=== PATIENT | female | born 1995 | race Caucasian/White ===

== ENCOUNTER 2024-01-17 18:06 | Emergency (ER) | payer MEDICAID, SELFPAY ==
[2024-01-17 18:07] VITALS: BP 106/70; PULSE 96; RESP 18; TEMP 36.6; O2SAT 99; BMI 23.8
--- NOTE | 2024-01-17 18:13 | EKG12_ITS ---
Test Reason : CP Blood Pressure : / mmHG Vent. Rate : 086 BPM Atrial Rate : 086 BPM P-R Int : 168 ms QRS Dur : 074 ms QT Int : 356 ms P-R-T Axes : 078 019 051 degrees QTc Int : 426 ms Normal sinus rhythm Low voltage QRS Borderline ECG Confirmed by INDRA BRITO, ACACIA ([id number]), editorial manager JOSE BERGMAN ([id number]) on 01/19/2024 10:25:20 AM Referred By: TERRI Confirmed By:ACACIA BURRELL MD
--- NOTE | 2024-01-17 18:54 | EX.ED.DYSGE1 ---
HPI History of Present Illness Chief Complaint: Chest Pain Detail of Chief Complaint: Respiratory symptoms with productive cough x 3 weeks Informant: patient Onset/Context/Timing Onset: Weeks Context: Sudden Onset Timing: Continuous and Waxes and wanes Quality: Dyspnea, productive cough, dysphonia and pleuritic pain Location: Respiratory Current Severity: Mild Maximum Severity: Moderate Worsened by: Going up and down steps Relieved by: Nothing Associated Symptoms Associated Symptoms: Subjective fever without chills Narrative Narrative: Patient a 28-year-old non-smoker who has been ill for approximate 3 weeks. She states on Thursday she was seen at urgent care. She was placed on antibiotics because she had something going on in her chest . She states initially she had rhinorrhea congestion thought she maybe had a sinus infection. Since symptoms not improving her voice was worse she went to the urgent care. Urgent care practitioner prescribed Augmentin. No imaging or testing was done. Patient denies headache, she denies ringing or ears or decreased hearing. She presently endorses rhinorrhea and congestion. She reports mild sore throat. She denies difficulty swallowing. Her cough is productive of colored sputum. She is a non-smoker. She has no history of PE or DVT. She has no risk factors for PE or DVT. She does report upper abdominal pain after coughing. She denies nausea, vomiting or diarrhea. He denies leg pain, swelling or discoloration. Prior similar symptoms: No Recent Illness/Hospitalization: Yes PFSH PFSH Medical History no medical history no medical history Home Medications ?Medication ?Instructions ?Recorded ?Last Taken ?Type azithromycin 250 mg tablet 250 mg PO DAILY #4 TABLETS 01/17/24 Unknown Rx prednisone 20 mg tablet 60 mg (3 x 20 mg) PO DAILY #12 01/17/24 Unknown Rx TABLETS Allergy/AdvReac Type Severity Reaction Status Date / Time cyclobenzaprine (From Allergy Chest Verified 01/17/24 18:07 Flexeril) tightness Surgical History no surgical history no surgical history Social History Smoking Status: Never smoker ROS ROS ED Constitutional Constitutional ED: Reports fever(s) and subjective; Denies chills or sweats Eyes Eyes: Denies blurry vision or change in vision ENT ENT ED: Reports rhinorrhea and sore throat; Denies ear pain Cardiovascular Cardiovascular: Reports chest pain; Denies orthopnea, palpitations, paroxysmal nocturnal dyspnea or racing heartbeat Respiratory/Chest Respiratory/Chest: Reports cough, dyspnea, dyspnea on exertion and sputum; Denies orthopnea or paroxysmal nocturnal dyspnea Gastrointestinal Gastrointestinal: Reports abdominal pain; Denies constipation, diarrhea, melena, nausea or vomiting Genitourinary Genitourinary ED: Denies dysuria, hematuria or urinary frequency Musculoskeletal Musculoskeletal: Denies arthralgias, back pain, myalgias or neck pain Integumentary Denies rash Neurologic Neurologic: Denies headache(s), paresthesias or weakness Hematologic/Lymphatic Hematologic/Lymphatic: Reports systems reviewed and no addt'l complaints, except as documented EXAM Physical Exam Const Vital Signs: 01/17/24 18:07 01/17/24 18:07 01/17/24 20:06 Temperature 97.8 F Temperature Source Temporal Pulse Rate 96 69 Respiratory Rate 18 16 Blood Pressure 106/70 106/70 98/62 Blood Pressure Mean 82 82 74 Pulse Ox 99 96 Oxygen Delivery Method Room Air Room Air Positive well nourished and well developed Constitutional Narrative: Patient's voice is markedly hoarse. She appears no distress. Vital signs are normal. General Appearance ED: well developed and NAD; Negative for cyanotic, diaphoretic or pallor HEENT Reports TM's clear and moist mucous membranes HEENT Narrative: Posterior pharynx out erythema or exudate. Uvula midline. No angioedema. Nares patent with slight drainage. She complains of mild discomfort with palpation over the frontal and maxillary sinuses. Ears normal. Tympanic Membrane ED: Yes TM's clear Eyes PERRL and EOMs intact bilaterally General Eye ED: Negative for pale conjunctiva or scleral icterus Neck no lymphadenopathy, supple and no JVD Neck Narrative: Trachea is midline. There is no inspiratory expiratory stridor. Chest Wall inspection of chest normal and palpation of chest normal Resp normal respiratory effort and clear to auscultation bilaterally Cardio regular rate, regular rhythm, S1 normal heart sound, S2 normal heart sound and no murmurs GI normal to inspection, nondistended, normoactive bowel sounds, non-distended and no masses; Negative for non-tender or hepatosplenomegaly Auscultation: hypoactive bowel sounds Palpation: tender epigastric Back/Spine no CVA tenderness Extremity Extremity Narrative: There is no asymmetry, swelling, discoloration, leg vein distention, palpable cords or tenderness along the distribution of the deep venous system. Neuro oriented x3 and CN's II-XII intact bilaterally Sensorium / Orientation: alert Skin no rashes or lesions noted and no wounds General Skin Exam: Negative for jaundice or pallor MDM MDM MDM Narrative Medical decision making narrative: With symptoms for 3 weeks Lab Data Attestation: I reviewed the patient's lab results. Lab results narrative: CBC reveals mild anemia with normal indices. Anemia has improved. Patient metabolic panel is unremarkable. Rapid antigen for COVID, influenza and RSV was negative. Therefore we will add antibiotic, azithromycin and discharged with prescription for prednisone and we will have respiratory teach patient how to use an inhaler. Labs: Laboratory Results - last 24 hr 01/17/24 19:15 WBC 5.6 RBC 3.88 L Hgb 11.5 L Hct 34.9 L MCV 89.9 MCH 29.6 MCHC 33.0 RDW Std Deviation 41.1 RDW Coeff of Mike 12.5 Plt Count 238 MPV 10.4 Immature Gran % (Auto) 0.200 Neut % (Auto) 51.0 Lymph % (Auto) 36.7 [place] % (Auto) 9.8 Eos % (Auto) 1.6 Baso % (Auto) 0.7 Absolute Neuts (auto) 2.9 Absolute Lymphs (auto) 2.06 Nucleated RBC % 0 Sodium 141 Potassium 4.1 Chloride 109 H Carbon Dioxide 28.0 Anion Gap 4 L BUN 9 Creatinine 0.87 Estim Creat Clear Calc 88.51 Est GFR (MDRD) Af Amer 98 Est GFR (MDRD) Non-Af 81 BUN/Creatinine Ratio 10.3 Glucose 83 Calcium 9.4 Radiography Chest X-Ray - ED: 2 View and Read by ED Physician (Chest x-ray is normal per my independent evaluation interpretation. Cardiac silhouette size normal. Lung parenchyma normal. Hilum is normal. Osseous structures unremarkable.) Diagnostic Testing: Clinical Impression(s) from Imaging Studies Chest X-Ray 01/17/24 19:20 IMPRESSION: No acute pulmonary finding. Electronically Signed: Brant Ramey MD at 19:50 EDT Reading Location ID and State: [facility] / [place] Tel , Service support , Discharge Plan Triage Chief Complaint: Chest Pain ED Provider: Pratik Becker Dx/Rx/DC Orders Clinical Impression: Purulent bronchitis, Bronchospasm, Acute bacterial tracheitis Instructions: ED Upper Resp Infec Abx Tx Prescriptions: New azithromycin 250 mg tablet 250 mg PO DAILY Qty: 4 0RF prednisone 20 mg tablet 60 mg PO DAILY Qty: 12 0RF Primary Care Provider: Renard Brooks Referrals: Renard Brooks MD [Primary Care Provider] - 1 Week if not improving Print Language: Divehi Disposition Disposition: Home, Self Care
--- NOTE | 2024-01-17 19:20 | RAD_ITS ---
INDICATION: Cough, dyspnea, pleurisy EXAMINATION/TECHNIQUE: X-RAY - XR Chest 2 Views COMPARISON: No relevant prior comparison study available FINDINGS: LINES/DEVICES: None. LUNGS: The lungs are well expanded. No consolidation, edema or effusion. No pneumothorax. MEDIASTINUM AND CARDIOVASCULAR STRUCTURES: Cardiac silhouette not enlarged. Central airways and mediastinal contour are unremarkable. BONES AND SOFT TISSUES: No acute abnormality. RAD/Chest PA and Lateral IMPRESSION: No acute pulmonary finding. Electronically Signed: Brant Ramey MD at 19:50 EDT ,
[2024-01-17 19:26] LABS: Absolute Lymphocyte Count 2.06 X10^3/uL (0.83-4.51); Absolute Neutrophil Count 2.9 X10^3/uL (2.0-7.7); Basophil# 0.04 X10^3/uL; Basophil% 0.7 % (0-1); Eosinophil# 0.09 X10^3/uL; Eosinophils% 1.6 % (0-5); Hematocrit 34.9 % (37-47); Hemoglobin 11.5 g/dL (12.0-15.0); Lymphocyte # 2.06 X10^3/ul (0.83-4.51); Lymphocyte % 36.7 % (19-41); Mean Corpuscular Hgb 29.6 pg (27.0-32.0); Mean Corpuscular Volume 89.9 fL (81-99); Mean Platelet Vol. 10.4 fl (6.2-12.0); Monocyte# 0.55 X10^3/uL; Monocyte% 9.8 % (0-10); NRBC Flagged by Analyzer 0 % (0-5); Neutrophil # 2.87 X10^3/uL (2.7-7.7); Platelet Count 238 K/mm3 (150-450); RBC Distribution Width CV 12.5 % (11.6-14.6); RBC Distribution Width SD 41.1 fl (35.1-43.9); Red Blood Count 3.88 M/mm3 (4.2-5.4); White Blood Count 5.6 K/mm3 (4.4-11.0)
[2024-01-17 19:39] LABS: Anion Gap 4 (5-15); BUN 9 mg/dL (7-18); BUN/Creat Ratio 10.3 RATIO (10-20); Calcium,Total 9.4 mg/dL (8.5-10.1); Chloride 109 mmol/L (98-107); Creatinine, Serum 0.87 mg/dL (0.55-1.02); EST Glomerular Filtration Rate 81 mL/min (>60); Est Glom Filt Rate - Afr Amer 98 mL/min (>60); Estimated Creatinine Clearance 88.51 ml/min; Glucose 83 mg/dL (74-106); Potassium 4.1 mmol/L (3.5-5.1); Sodium Level 141 mmol/L (136-145)
[2024-01-17 20:06] VITALS: BP 98/62; PULSE 69; RESP 16; O2SAT 96
[2024-01-17] MEDS: predniSONE 20 MG Tablet 60 MG PO (21:00)
[2024-01-17] MEDS: Albuterol Sulfate 8 gm Inhaler (60 puffs) 2 PUFF INHALATION (21:00)
[2024-01-17] MEDS: Azithromycin 250 MG Tablet 500 MG PO (21:00)
[2024-01-17 21:04] VITALS: BP 101/66; PULSE 65; RESP 16; TEMP 36.7; O2SAT 96
== END 2024-01-17 21:08 | disposition home or self-care (01) ==
PROVIDERS: Emergency Provider Emergency Medicine; PCP Family Medicine; Visit Provider Emergency Medicine
DX: J41.1 Mucopurulent chronic bronchitis (principal); J98.01 Acute bronchospasm; J04.10 Acute tracheitis without obstruction; B96.89 Other specified bacterial agents as the cause of diseases classified elsewhere; Z11.52 Encounter for screening for COVID-19; R09.3 Abnormal sputum; R10.10 Upper abdominal pain, unspecified
CPT/HCPCS: 71046; 80048; 85025; 87631; 93005; 99282; A4216

== ENCOUNTER 2024-06-03 18:14 | Emergency (ER) | payer MEDICAID, SELFPAY ==
[2024-06-03 18:16] VITALS: BP 130/86; PULSE 143; RESP 16; TEMP 37.9; O2SAT 98; BMI 23.7
--- NOTE | 2024-06-03 18:37 | RAD_ITS ---
EXAM: XR CHEST, 2 VIEWS CLINICAL INDICATION: Cough TECHNIQUE: Frontal and lateral views of the chest. COMPARISON: 01/17/2024 FINDINGS: LUNGS AND PLEURAL SPACES: Unremarkable. No consolidation or edema. No pneumothorax. No effusion. HEART: Unremarkable. Cardiac silhouette not enlarged. MEDIASTINUM: Central airways and mediastinal contour are unremarkable. BONES/JOINTS: Unremarkable. No acute fracture. SOFT TISSUES: Unremarkable. RAD/Chest PA and Lateral IMPRESSION: No radiographic evidence of acute cardiopulmonary disease. Electronically Signed: Willy Michelle MD at 19:16 EST ,
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
[2024-06-03] MEDS: Acetaminophen 500 MG Tablet 1000 MG PO (19:01)
[2024-06-03 19:04] LABS: Absolute Lymphocyte Count 0.31 X10^3/uL (0.83-4.51); Absolute Neutrophil Count 3.8 X10^3/uL (2.0-7.7); Basophil# 0.02 X10^3/uL; Basophil% 0.4 % (0-1); Eosinophil# 0.01 X10^3/uL; Eosinophils% 0.2 % (0-5); Hematocrit 36.2 % (37-47); Hemoglobin 12.2 g/dL (12.0-15.0); Lymphocyte # 0.31 X10^3/ul (0.83-4.51); Mean Corp Hgb Conc 33.7 g/dL (32-36); Mean Corpuscular Hgb 30.5 pg (27.0-32.0); Mean Corpuscular Volume 90.5 fL (81-99); Mean Platelet Vol. 10.2 fl (6.2-12.0); Monocyte# 0.29 X10^3/uL; Monocyte% 6.5 % (0-10); NRBC Flagged by Analyzer 0 % (0-5); Neutrophil # 3.81 X10^3/uL (2.7-7.7); Neutrophil % 85.5 % (47-70); POSITIVE DIFFERENTIAL YES; Platelet Count 230 K/mm3 (150-450); RBC Distribution Width SD 42.7 fl (35.1-43.9); White Blood Count 4.5 K/mm3 (4.4-11.0)
[2024-06-03 19:10] LABS: Internal QC Validated? YES +Cl - CLEAR BKGD; Pregnancy, Serum, hCG Quali. NEGATIVE Negative
[2024-06-03 19:14] LABS: Anion Gap 5 (5-15); BUN 5 mg/dL (7-18); BUN/Creat Ratio 5.2 RATIO (10-20); Calcium,Total 9.6 mg/dL (8.5-10.1); Chloride 106 mmol/L (98-107); Creatinine, Serum 0.97 mg/dL (0.55-1.02); EST Glomerular Filtration Rate 72 mL/min (>60); Est Glom Filt Rate - Afr Amer 87 mL/min (>60); Estimated Creatinine Clearance 79.39 ml/min; Glucose 107 mg/dL (74-106); Potassium 3.2 mmol/L (3.5-5.1); Sodium Level 138 mmol/L (136-145)
[2024-06-03 20:39] LABS: Amphetamine Urine NEGATIVE (<1000 ng/mL); Barbiturate Urine VISTA NEGATIVE (< 200 ng/mL); Benzodiazepine Urine VISTA NEGATIVE (< 200 ng/mL); Cocaine Urine VISTA NEGATIVE (< 300 ng/mL); Ecstacy Urine VISTA NEGATIVE (< 500 ng/mL); Methadone Urine VISTA NEGATIVE (< 300 ng/mL); PCP Urine VISTA NEGATIVE (< 25 ng/mL); THC Urine VISTA NEGATIVE (< 50 ng/mL); Vista UDS pH Range 4
--- NOTE | 2024-06-03 20:44 | CM.ED ---
Social work Handoff to cherry Henry at [facility] ([phone]) about 2014. This SW advised Elaine that patient's assessment was completed and this SW faxed patient's face sheet, pink slip, and SW assessment to Crisis (f: ). Patient updated of Dr. Devi and SW agreement to place patient for stabilization and medication restart. Patient reluctantly agreed. At 2044, this SW let social worker masters Morgan and Dr. Devi know of SW handoff to Crisis and need to fax over patient's labwork and doctor's note when available. Plan: inpatient psychiatric placement pending Crisis referrals and acceptance. Liliana Posada, FRONT OFFICE JAVA DEVELOPER, BOWLING ALLEY OPERATOR
[2024-06-03 20:58] LABS: Alcohol, Blood (Medical)-Serum < 3.0 mg/dL
[2024-06-03 21:00] VITALS: BP 122/68; PULSE 114; RESP 16; O2SAT 99
--- NOTE | 2024-06-03 21:17 | ED.RN ---
Called Crisis @ 2114, spoke to Tala. Let her know all of pts medical clearance/ SW evaluation has been faxed over in order for them to work on placement.
[2024-06-03 23:00] VITALS: BP 131/72; PULSE 92; RESP 18; O2SAT 98
--- NOTE | 2024-06-03 23:11 | ED.RN ---
[facility] called to update us status of referrals. Pt was declined at [facility] due to positive flu A, and was referred to [facility].
--- NOTE | 2024-06-03 23:25 | ED.RN ---
crisis called to let us know pt is accepted at [facility], going [facility]. [facility], spoke to Albert. eta is 0800 tomorrow morning 06/04/24
[2024-06-04] MEDS: Potassium Chloride Oral Tablet 20 MEQ 40 MEQ PO (00:06)
[2024-06-04 01:00] VITALS: BP 101/72; PULSE 88; RESP 16; O2SAT 98
[2024-06-04 02:00] VITALS: BP 110/70; PULSE 88; RESP 16; O2SAT 99
--- NOTE | 2024-06-04 02:00 | ED.RN ---
Patient's calls requesting an update. Patient gave this RN verbal permission to give him an update. She says she has talked to him multiple times but her phone is now . This RN gives Laith who goes by Pardeep and update regarding her acceptance to [facility] and that she will be leaving at 0800.
--- NOTE | 2024-06-04 05:07 | ED.RN ---
Patient's has called in multiple times inquiring about patient, he has also talked to her on her phone multiple times. He calls back this morning stating he needs to talk to his , he was reminded that she now has her phone. He states she is not answering his calls and texts. This RN stated I would not wake her up, but I would tell her he called when she wakes. He got angry started yelling and cursing, asking for this RN's first and last name. He then hangs up on this RN.
[2024-06-04] MEDS: Acetaminophen 500 MG Tablet 1000 MG PO (05:48)
[2024-06-04 06:38] VITALS: BP 110/70; PULSE 88; RESP 16; TEMP 37.1; O2SAT 99
--- NOTE | 2024-06-04 08:24 | ED.RN ---
[facility]ave report to [facility].
== END 2024-06-04 08:26 ==
LOC: ED 19:53
PROVIDERS: Emergency Provider Surgery; Visit Provider Surgery
DX: F31.9 Bipolar disorder, unspecified (principal); F11.11 Opioid abuse, in remission; J10.1 Influenza due to other identified influenza virus with other respiratory manifestations; R45.851 Suicidal ideations; E87.6 Hypokalemia; Z11.52 Encounter for screening for COVID-19
CPT/HCPCS: 71046; 80048; 80307; 82077; 84703; 85025; 87631; 93005; 99285; A4216